=== PATIENT | male | born 1970 | race Caucasian/White ===

== ENCOUNTER 2019-02-17 17:40 | Emergency (ER) | payer MEDICARE ==
[~2019-02-17] VITALS: Ht 165.1 cm; Wt 56.2 kg
[2019-02-17] MEDS ORDERED: PLEASE ENTER ALLERGIES MC SCH (18:00)
[2019-02-17] MEDS ORDERED: PLEASE ENTER HEIGHT AND WEIGHT MC SCH (18:00)
[2019-02-17] MEDS ORDERED: SODIUM CHLORIDE FLUSH 10ML SYR IVF ONE ×2 (18:00→18:30)
--- NOTE | 2019-02-17 18:08 | NUR ---
explosives detonator note: this RN unable to obtain temp in triage. pt's skin temp feels normal to touch.
--- NOTE | 2019-02-17 18:28 | NUR ---
PT AMBULATED TO BR WITHOUT DIFFICULTY. RV'WD POC WITH HIM. AT BS.
[2019-02-17 18:29] LABS: ALBUMIN 4.7 g/dL (3.4-5.0); ANION GAP 6 mmol/L (5-15); CHLORIDE 107 mmol/L (98-107)
[2019-02-17] MEDS ORDERED: KETOROLAC 30 MG/1 ML IVPush ONE (18:30)
[2019-02-17] MEDS ORDERED: ONDANSETRON 2MG/ML, 2ML IVPush ONE (18:30)
[2019-02-17 18:33] LABS: ALANINE AMINOTRANSFERASE 33 U/L (12-78); ALKALINE PHOSPHATASE 56 U/L (45-117); BASOPHILS # (AUTO) 0.07 x10^3/uL (0-0.1); BASOPHILS % (AUTO) 1 % (0-1); BILIRUBIN,TOTAL 0.8 mg/dL (0.2-1.0); CREATININE 1.28 mg/dL (0.7-1.3); EOSINOPHILS # (AUTO) 0.33 x10^3/uL (0-0.4); EOSINOPHILS % (AUTO) 3 % (1-7); LYMPHOCYTES # (AUTO) 2.16 x10^3/uL (1-3.4); LYMPHOCYTES % (AUTO) 22 % (22-44); MD NO; MEAN CORPUSCULAR HEMOGLOBIN 31.5 pg (27.5-34.5); MEAN CORPUSCULAR HGB CONC 34.1 g/dL (33.2-36.2); MEAN CORPUSCULAR VOLUME 92.3 fL (81-97); MEAN PLATELET VOLUME 8.9 fL (7.4-10.4); MONOCYTES # (AUTO) 0.67 x10^3/uL (0.2-0.8); MONOCYTES % (AUTO) 7 % (2-9); NEUTROPHILS # (AUTO) 6.74 x10^3/uL (1.8-6.8); NEUTROPHILS % (AUTO) 68 % (42-75); PLATELET COUNT 245 x10^3/uL (130-400); RED BLOOD COUNT 5.02 x10^6/uL (4.38-5.82); TOTAL PROTEIN 8.1 g/dL (6.4-8.2)
[2019-02-17] MEDS ORDERED: ONDANSETRON 2MG/ML, 2ML ONE (18:35)
[2019-02-17] MEDS ORDERED: KETOROLAC 30 MG/1 ML ONE (18:35)
[2019-02-17 18:39] LABS: MICROSCOPIC NOT IND
[2019-02-17 18:43] LABS: CULTURE INDICATED? NO
--- NOTE | 2019-02-17 19:05 | NUR ---
IV INSERTED, PT MEDICATED PER ORDERS. HAVING SEVERE L FLANK PAIN AT THIS TIME, PACING AROUND ROOM. AT BS. NOTIFIED.
[2019-02-17] MEDS ORDERED: MORPHINE SULFATE 4 MG/ML, 1ML IVPush PRN (19:30)
[2019-02-17] MEDS ORDERED: MORPHINE SULFATE 4 MG/ML, 1ML ONE (19:34)
[2019-02-17 19:40] VITALS: BP 122/82
--- NOTE | 2019-02-17 19:42 | NUR ---
PT MEDICATED WITH MORPHINE PER ORDERS. STATES PAIN SUBSIDED A LITTLE AFTER TORADOL. UNDERSTANDS POC.
--- NOTE | 2019-02-17 20:11 | NUR ---
PT VERBALIZES RELIEF AFTER PAIN MEDS. D/C INSTRUCTIONS & F/U APPT RV'WD WITH HIM, HE VERBALIZES UNDERSTANDING. AMBULATED OUT OF ED WITH WITHOUT DIFFICULTY.
== END 2019-02-17 20:14 | disposition home or self-care (01) ==
LOC: ED 20:02
DX: N20.2 Calculus of kidney with calculus of ureter (principal); Z90.49 Acquired absence of other specified parts of digestive tract
CPT/HCPCS: 36415; 74176; 80053; 81003; 85025; 96374; 96375; 99284; J1885; J2405

== ENCOUNTER → 2019-08-31 | Outpatient (CLI) | payer MEDICARE, MEDICAID | END | disposition home or self-care (01) | LOC: CFH 07:57 | PROVIDERS: ATTEND Internal Medicine Cardiovascular Disease | DX: I08.1 Rheumatic disorders of both mitral and tricuspid valves (principal); R07.9 Chest pain, unspecified; I10 Essential (primary) hypertension; E78.5 Hyperlipidemia, unspecified; Z87.891 Personal history of nicotine dependence; Z88.8 Allergy status to other drugs, medicaments and biological substances; Z88.5 Allergy status to narcotic agent | CPT/HCPCS: 93306 ==

== ENCOUNTER 2019-09-18 18:21 | Emergency (ER) | payer MEDICAID, MEDICARE ==
[~2019-09-18] VITALS: Ht 165.1 cm; Wt 54.2 kg
--- NOTE | 2019-09-18 18:31 | NUR ---
EKG COMPLETED IN TRIAGE.
--- NOTE | 2019-09-18 19:03 | NUR ---
Patient states he has had CP recently and is being followed by a annealer helper. He has had some tests done which have come back with abnormal results. Today he is having CP and dizziness. Patient denies any prior hx. Patient appears anxious in room and states he's had a stressful day. Respirations even and unlabored and vitals stable.
[2019-09-18] MEDS ORDERED: ASPIRIN 81 MG TABLET CHEW PO ONE (19:30)
[2019-09-18] MEDS ORDERED: KETOROLAC 30 MG/1 ML IM ONE (19:30)
[2019-09-18 19:36] LABS: BASOPHILS # (AUTO) 0.07 x10^3/uL (0-0.1); BASOPHILS % (AUTO) 1 % (0-1); EOSINOPHILS % (AUTO) 3 % (1-7); LYMPHOCYTES % (AUTO) 37 % (22-44); MD NO; MEAN CORPUSCULAR HGB CONC 33.1 g/dL (33.2-36.2); MEAN CORPUSCULAR VOLUME 93.7 fL (81-97); MEAN PLATELET VOLUME 8.8 fL (7.4-10.4); MONOCYTES # (AUTO) 0.52 x10^3/uL (0.2-0.8); MONOCYTES % (AUTO) 7 % (2-9); NEUTROPHILS # (AUTO) 4.23 x10^3/uL (1.8-6.8); NEUTROPHILS % (AUTO) 53 % (42-75); PLATELET COUNT 220 x10^3/uL (130-400); RED BLOOD COUNT 5.14 x10^6/uL (4.38-5.82); RED CELL DISTRIBUTION WIDTH 12.5 % (9.4-14.8)
[2019-09-18] MEDS ORDERED: KETOROLAC 30 MG/1 ML ONE (19:39)
[2019-09-18] MEDS ORDERED: ASPIRIN 81 MG TABLET CHEW ONE (19:40)
[2019-09-18 19:45] LABS: ALANINE AMINOTRANSFERASE 31 U/L (12-78); ALBUMIN 4.4 g/dL (3.4-5.0); ANION GAP 3 mmol/L (5-15); CALCIUM 9.3 mg/dL (8.5-10.1); CHLORIDE 110 mmol/L (98-107); CREATININE 1.17 mg/dL (0.7-1.3)
[2019-09-18 19:50] LABS: ALKALINE PHOSPHATASE 64 U/L (45-117); BILIRUBIN,TOTAL 0.7 mg/dL (0.2-1.0); TROPONIN I < 0.015 ng/mL (0.000-0.045)
[2019-09-18 20:51] LABS: TROPONIN I < 0.015 ng/mL (0.000-0.045)
[2019-09-18 21:08] VITALS: BP 114/66
== END 2019-09-18 21:13 | disposition home or self-care (01) ==
LOC: ED 19:42
DX: R07.89 Other chest pain (principal); F43.0 Acute stress reaction; F17.200 Nicotine dependence, unspecified, uncomplicated; Z90.49 Acquired absence of other specified parts of digestive tract; Z98.890 Other specified postprocedural states
CPT/HCPCS: 36415; 71046; 80053; 83880; 84484; 85025; 93005; 96372; 99284; J1885

== ENCOUNTER → 2019-10-31 | Outpatient (CLI) | payer MEDICAID, MEDICARE | END | disposition home or self-care (01) | LOC: CFH 07:18 | PROVIDERS: ATTEND Physician Assistant Medical | DX: R07.9 Chest pain, unspecified (principal) | CPT/HCPCS: 78452; 93017; A9502 ==

== ENCOUNTER 2020-12-27 09:21 | Emergency (ER) | payer MEDICARE, MEDICAID ==
[~2020-12-27] VITALS: Ht 165.1 cm; Wt 61.4 kg
--- NOTE | 2020-12-27 09:49 | NUR ---
THE PT IS A 50M WITH COMPLAINTS OF SOB X 1.5 WEEKS. THE SOB IS AT REST AND WITH EXERTION. DENIES CP EXCEPT WITH DEEP BREATHS. SPEAKS IN FULL SENTENCES, NADN. O2 SAT IS 99% ON RA. PROVIDER AT BEDSIDE FOR EVAL AND POC. SP02, AND BP MONITORS IN PLACE. CALL LIGHT WITHIN REACH.
[2020-12-27] MEDS ORDERED: LOVA40TA2 PO (09:52)
[2020-12-27] MEDS ORDERED: OMEP40CA42 PO (09:52)
--- NOTE | 2020-12-27 09:57 | NUR ---
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 PT NORMAL SINUS ON THE MONITOR,.
[2020-12-27 10:15] LABS: BASOPHILS % (AUTO) 2 % (0-1); EOSINOPHILS % (AUTO) 4 % (1-7); LYMPHOCYTES % (AUTO) 31 % (22-44); MEAN CORPUSCULAR HEMOGLOBIN 30.4 pg (27.5-34.5); MEAN PLATELET VOLUME 8.7 fL (7.4-10.4); MONOCYTES % (AUTO) 8 % (2-9); NEUTROPHILS % (AUTO) 55 % (42-75); PLATELET COUNT 218 x10^3/uL (130-400); RED BLOOD COUNT 4.92 x10^6/uL (4.38-5.82); RED CELL DISTRIBUTION WIDTH 13.1 % (9.4-14.8)
[2020-12-27 10:16] LABS: MD NO
[2020-12-27 10:22] LABS: ALANINE AMINOTRANSFERASE 36 U/L (12-78); ALBUMIN 4.2 g/dL (3.4-5.0); ANION GAP 4 mmol/L (5-15); CALCIUM 9.1 mg/dL (8.5-10.1); CHLORIDE 107 mmol/L (98-107)
[2020-12-27 10:27] LABS: ALKALINE PHOSPHATASE 73 U/L (45-117); BILIRUBIN,TOTAL 0.8 mg/dL (0.2-1.0); TOTAL PROTEIN 7.7 g/dL (6.4-8.2); TROPONIN I < 0.015 ng/mL (0.000-0.045)
[2020-12-27 10:46] VITALS: BP 122/78
--- NOTE | 2020-12-27 10:47 | NUR ---
PT IS RESTING COMFORTABLY ON HIS CELL PHONE AND WATCHING TV AWAITING DISPOSITION.
== END 2020-12-27 10:53 | disposition home or self-care (01) ==
LOC: ED 09:45
DX: R06.00 Dyspnea, unspecified (principal); R06.02 Shortness of breath; E78.5 Hyperlipidemia, unspecified; R94.31 Abnormal electrocardiogram [ECG] [EKG]; Z87.891 Personal history of nicotine dependence
CPT/HCPCS: 36415; 71045; 80053; 83735; 83880; 84443; 84484; 85025; 93005; 99285

== ENCOUNTER 2021-01-14 19:58 | Emergency (ER) | payer MEDICARE, MEDICAID ==
[~2021-01-14] VITALS: Ht 165.1 cm; Wt 60.0 kg
[~2021-01-14 19:58] MED LIST: LOVA40TA2 PO; OMEP40CA42 PO
[2021-01-14] MEDS ORDERED: hydrOXyzine 50MG TABLET ONE (21:17)
[2021-01-14 21:53] VITALS: BP 122/65
== END 2021-01-14 21:57 | disposition home or self-care (01) ==
LOC: ED 20:25
DX: R21 Rash and other nonspecific skin eruption (principal); T36.8X5A Adverse effect of other systemic antibiotics, initial encounter; K08.89 Other specified disorders of teeth and supporting structures; Y92.89 Other specified places as the place of occurrence of the external cause
CPT/HCPCS: 99283; J7512; Q0177

== ENCOUNTER → 2021-01-30 | Outpatient (CLI) | payer MEDICARE, MEDICAID ==
[~2021-01-30] MED LIST changes: +REGADENOSON 0.4 MG/5 ML SYRINGE ONE
== END | disposition home or self-care (01) ==
LOC: CVU 05:58
PROVIDERS: ATTEND Internal Medicine Cardiovascular Disease
DX: I34.0 Nonrheumatic mitral (valve) insufficiency (principal); I42.9 Cardiomyopathy, unspecified; R07.9 Chest pain, unspecified; R06.00 Dyspnea, unspecified
CPT/HCPCS: 78452; 93017; 93306; 93356; A9502; J2785

== ENCOUNTER → 2021-03-20 | Outpatient (CLI) | payer MEDICARE, MEDICAID ==
[~2021-03-20] MED LIST changes: -OMEP40CA42 PO; +OMEP40CA8 PO; -REGADENOSON 0.4 MG/5 ML SYRINGE ONE
== END | disposition home or self-care (01) ==
LOC: CFH 09:43
PROVIDERS: ATTEND Nurse Practitioner Family
DX: R06.02 Shortness of breath (principal)
CPT/HCPCS: 71046

== ENCOUNTER 2021-06-06 12:46 | Outpatient (CLI) | payer MEDICARE, MEDICAID | END 2021-06-06 23:59 | disposition home or self-care (01) | LOC: RAD 12:46 | PROVIDERS: ATTEND Nurse Practitioner Family | DX: R94.2 Abnormal results of pulmonary function studies (principal); K21.9 Gastro-esophageal reflux disease without esophagitis; I42.9 Cardiomyopathy, unspecified; E78.2 Mixed hyperlipidemia; Z79.899 Other long term (current) drug therapy; Z87.891 Personal history of nicotine dependence; Z88.0 Allergy status to penicillin; Z88.5 Allergy status to narcotic agent; Z88.8 Allergy status to other drugs, medicaments and biological substances | CPT/HCPCS: 71250; 76000 ==